=== PATIENT | male | born 1965 | race African-American/Black ===

== ENCOUNTER 2017-03-08 00:59 | Emergency (ER) | payer OTHER | END 2017-03-08 06:16 | disposition home or self-care (01) | LOC: FER 00:59 | DX: K59.00 Constipation, unspecified (principal); J44.9 Chronic obstructive pulmonary disease, unspecified; E11.9 Type 2 diabetes mellitus without complications; Z79.84 Long term (current) use of oral hypoglycemic drugs; Z79.51 Long term (current) use of inhaled steroids | CPT/HCPCS: 74000; 99283 ==